=== PATIENT | female | born 1955 | race Native Hawaiian/Other Pacific Islander ===

== ENCOUNTER 2018-02-08 13:45 | Emergency (ER) | payer OTHER ==
[~2018-02-08] VITALS: Ht 152.4 cm; Wt 68.0 kg
[2018-02-08] MEDS ORDERED: ATOR20TA PO (13:57)
[2018-02-08] MEDS ORDERED: LEVE250T2 PO (13:57)
[2018-02-08] MEDS ORDERED: OXYB5TAB11 PO (13:57)
[2018-02-08] MEDS ORDERED: METO-358 PO (13:57)
[2018-02-08] MEDS ORDERED: HYDROCHLOROTHIAZIDE (13:57)
[2018-02-08] MEDS ORDERED: TRIAMTERENE (13:57)
[2018-02-08] MEDS ORDERED: LAMOTRIGINE (13:57)
[2018-02-08] MEDS ORDERED: IV NORMAL SALINE 1000 ML BAG IV ONE (14:00)
[2018-02-08] MEDS ORDERED: MECLIZINE HCL 25 MG TABLET PO ONE (14:00)
[2018-02-08] MEDS ORDERED: MECLIZINE HCL 25 MG TABLET ONE (14:07)
[2018-02-08 14:13] LABS: BASOPHILS % (AUTO) 0.7 % (0.0-2.0); EOSINOPHILS # (AUTO) 0.1 K/uL (0.0-0.7); HEMATOCRIT 38.7 % (31.2-41.9); HEMOGLOBIN 13.3 g/dL (10.9-14.3); LYMPHOCYTES # (AUTO) 1.8 K/uL (20.0-40.0); LYMPHOCYTES % (AUTO) 27.4 % (20.5-51.5); MEAN CORPUSCULAR HEMOGLOBIN 31.1 uug (24.7-32.8); MEAN CORPUSCULAR HGB CONC 34 g/dL (32.3-35.6); MEAN CORPUSCULAR VOLUME 90.8 fL (75.5-95.3); MONOCYTES # (AUTO) 0.5 K/uL (2.0-10.0); MONOCYTES % (AUTO) 7.5 % (0.0-11.0); NEUTROPHILS # (AUTO) 4.3 K/uL (1.8-8.9); NEUTROPHILS % (AUTO) 63.4 % (38.5-71.5); PLATELET COUNT (AUTO) 265 K/uL (179-408); RED BLOOD CELL COUNT(AUTO) 4.26 MIL/uL (3.63-4.92); WHITE BLOOD COUNT (AUTO) 6.7 K/uL (3.8-11.8)
[2018-02-08 14:24] LABS: BILIRUBIN,DIRECT 0.1 mg/dL (0.0-0.2); BILIRUBIN,TOTAL 0.5 mg/dL (0.2-1.0); TOTAL PROTEIN, SERUM 7.3 g/dL (6.4-8.2)
[2018-02-08] MEDS ORDERED: POTASSIUM BICARBONATE/CIT AC 25 MEQ TABLET.EFF PO ONE (14:30)
[2018-02-08] MEDS ORDERED: POTASSIUM BICARBONATE/CIT AC 25 MEQ TABLET.EFF ONE (14:43)
--- NOTE | 2018-02-08 15:05 | NUR ---
Patient discharged to home in stable conditon. Written and verbal after care instructions given. Patient verbalizes understanding of instructions.PT WALKS IN STEADY GAIT. PT SYS FEELS BETTER. PT [place] DIZZINESS, NAUSEA OR ANY COMPLAIN AT THIS TIME. CALLED [facility] TO ASK ABOUT PT CAR MARIE, WAS TOLD THAT THEY HAVE THE MARIE AND WILL BRING IT TO THE PT IN ER.
[2018-02-08 15:20] VITALS: BP 129/77
--- NOTE | 2018-02-08 15:25 | NUR ---
[facility] BROUGHT THE PT MARIE BACK AND HANDED TO THE PT.
== END 2018-02-08 15:25 | disposition home or self-care (01) ==
LOC: ER 13:45
DX: H81.10 Benign paroxysmal vertigo, unspecified ear (principal); E78.5 Hyperlipidemia, unspecified; I10 Essential (primary) hypertension; Z90.49 Acquired absence of other specified parts of digestive tract
CPT/HCPCS: 36415; 70030-TC; 85025; 85730; 93005; A4663; J7030; J8597